=== PATIENT | female | born 1935 | race Caucasian/White ===

== ENCOUNTER 2017-03-25 20:19 | Observation (INO) | payer OTHER ==
[~2017-03-25] VITALS: Ht 157.5 cm; Wt 62.0 kg
[2017-03-25 21:07] LABS: HEMATOCRIT 45.4 % (36.0-46.0); MCH 29.8 PG (29.0-34.0); MCHC 32.6 G/DL (30.0-36.0); MCV 91.5 FL (83-99); PLATELET COUNT 211 K/uL (156-360); RBC DIS.WIDTH-SD 43.9 % (39-53); RED BLOOD COUNT 4.96 M/uL (3.80-5.20); WHITE BLOOD COUNT 7.3 K/uL (4.1-10.2)
[2017-03-25 21:15] LABS: CHLORIDE 105 mEq/L (99-109); D-DIMER ELISA < 150.00 ng/mLDDU (<230); POTASSIUM 4.1 mEq/L (3.7-5.4); SODIUM 141 mEq/L (136-147)
[2017-03-25 21:17] LABS: GLUCOSE 108 mg/dL (70-99)
[2017-03-25 21:18] LABS: ANION GAP 14 MEQ/L (2-14)
[2017-03-25 21:21] LABS: GFR ESTIMATE (CALCULATED) > 59 mL/min/
[2017-03-25 21:22] LABS: UREA NITROGEN (BUN) 23 mg/dL (9-23)
[2017-03-25 21:29] LABS: TROP-I INTERPRETATION NEGATIVE; TROPONIN-I < 0.01 ng/mL (0.0-0.30)
[2017-03-25] MEDS ORDERED: AMLODIPINE BESYL5 MG PO (22:57)
[2017-03-25] MEDS ORDERED: LEVOTHYROXINE50 MCG PO (22:57)
[2017-03-25] MEDS ORDERED: LO-DOSE ASPIRIN81 M2 PO (22:59)
[2017-03-25 23:06] LABS: SERUM ETHYL ALCOHOL < 10 mg/dL
[2017-03-25 23:30] VITALS: BP 156/77
[2017-03-26 06:54] VITALS: BP 126/60
[2017-03-26 09:00] VITALS: BP 125/75; BP 130/79
[2017-03-26 09:01] VITALS: BP 115/68
[2017-03-26 09:13] LABS: TROP-I INTERPRETATION NEGATIVE; TROPONIN-I < 0.01 ng/mL (0.0-0.30)
[2017-03-26 12:34] VITALS: BP 131/77
== END 2017-03-26 16:53 | disposition home or self-care (01) ==
LOC: EME 20:19 → EDOF 22:20 → ENRESERV 22:21 → 5WEST 23:30
PROVIDERS: Emergency Medicine; Physician Assistant Medical
DX: R55 Syncope and collapse (principal); E03.9 Hypothyroidism, unspecified; I10 Essential (primary) hypertension; Z82.49 Family history of ischemic heart disease and other diseases of the circulatory system; Z87.891 Personal history of nicotine dependence; Z79.82 Long term (current) use of aspirin; Z80.0 Family history of malignant neoplasm of digestive organs
CPT/HCPCS: 71020; 71275; 74177; 80048; 84443; 84484; 85027; 85379; 93005; 93880; 99281; 99285; G0378; G0480; J1644; J7030

== ENCOUNTER 2017-07-20 21:53 | Emergency (ER) | payer OTHER ==
[~2017-07-20] VITALS: Ht 157.5 cm; Wt 61.4 kg
[~2017-07-20 21:53] MED LIST: AMLODIPINE BESYL5 MG PO; LEVOTHYROXINE50 MCG PO; LO-DOSE ASPIRIN81 M2 PO
[2017-07-20 22:45] LABS: HEMATOCRIT 44.3 % (36.0-46.0); HEMOGLOBIN 14.6 G/DL (11.9-15.5); MCH 29.6 PG (29.0-34.0); MCV 89.7 FL (83-99); PLATELET COUNT 230 K/uL (156-360); RBC DIS.WIDTH-CV 14.1 % (11.8-14.6); RBC DIS.WIDTH-SD 46.4 % (39-53); RED BLOOD COUNT 4.94 M/uL (3.80-5.20); WHITE BLOOD COUNT 5.1 K/uL (4.1-10.2)
[2017-07-20 22:54] LABS: CHLORIDE 109 mEq/L (99-109); POTASSIUM 3.8 mEq/L (3.7-5.4); SODIUM 141 mEq/L (136-147)
[2017-07-20 22:56] LABS: GLUCOSE 115 mg/dL (70-99)
[2017-07-20 23:00] LABS: CREATININE 0.8 mg/dL (0.6-1.3); GFR ESTIMATE (CALCULATED) > 59 mL/min/; UREA NITROGEN (BUN) 19 mg/dL (9-23)
[2017-07-20 23:07] LABS: TROP-I INTERPRETATION NEGATIVE; TROPONIN-I < 0.01 ng/mL (0.0-0.30)
[2017-07-20] MEDS ORDERED: ZUPLENZ8 MG PO (23:51)
[2017-07-21 00:18] VITALS: BP 157/101
== END 2017-07-21 00:21 | disposition home or self-care (01) ==
LOC: EME 21:53
PROVIDERS: Emergency Medicine Emergency Medical Services
DX: G93.89 Other specified disorders of brain (principal); R53.1 Weakness; R27.0 Ataxia, unspecified; R11.0 Nausea; R51 Headache; Z87.891 Personal history of nicotine dependence; Z87.442 Personal history of urinary calculi; Z79.82 Long term (current) use of aspirin
CPT/HCPCS: 70450; 80048; 84484; 85027; 93005; 99281; 99284